=== PATIENT | female | born 1975 | race African-American/Black ===

== ENCOUNTER 2018-02-20 13:08 | Emergency (ER) | payer SELFPAY ==
[~2018-02-20] VITALS: Ht 165.1 cm; Wt 90.0 kg
[2018-02-20 13:15] VITALS: BP 151/78; PULSE 94; RESP 20; TEMP 98; O2SAT 100
[2018-02-20] MEDS ORDERED: SODIUM CHLOR 0.9% 1000 ML INJ 1,000 ML IV ONE (13:29)
[2018-02-20] MEDS ORDERED: SODIUM CHLORIDE 0.9% FLUSH 10 ML FLUSH IVF PRN (13:30)
[2018-02-20] MEDS ORDERED: PROCHLORPERAZINE INJ 10 MG/2 ML VIAL IVP ONE (13:30)
[2018-02-20] MEDS ORDERED: diphenhydrAMINE HCL 50 MG/ML VIAL IVP ONE (13:30)
[2018-02-20] MEDS ORDERED: MORPHINE SULFATE 2 MG/ML INJ IV PUSH ONE (13:30)
--- NOTE | 2018-02-20 13:37 | PD ---
HPI Chief Complaint: Headache Time Seen by Provider: 13:23 Travel History International Travel<30 days: No Contact w/Intl Traveler<30days: No History of Present Illness HPI 42-year-old female from [place] visiting locally, presents emergency department with worsening central headache, over the past 3 days. Patient states she normally does not have headaches. Patient states no significant upper respiratory symptoms. She states her headache is sometimes 10 /10 currently about an 8 out of 10. It is not worse with bending forward. She has no sinus congestion, cough, sore throat, or postnasal drip. She states no history of headaches in the past. She states this is the worst headache of her life. She denies vomiting but has had some nausea. No diarrhea noted. No fever or chills. Patient denies significant anxiety or stressors lately. No history of injury. Patient has no known drug allergies. PFSH Past Medical History ?: Not LMP: 02/03/18 Social History Alcohol Use: Yes Tobacco Use: No Substance Use: No Allergies-Medications (Allergen,Severity, Reaction): Coded Allergies: No Known Allergies (Unverified , 02/20/18) Review of Systems Except as stated in HPI: all other systems reviewed are Neg General / Constitutional: No: Fever Eyes: Positive: Photophobia, No: Diploplia, Blurred Vision, Drainage, Redness, Foreign Body Sensation, Pain, Tearing, Blind Spots, Visual changes, Blindness HENT: Positive: Headaches, Lightheadedness, No: Vertigo, Sore Throat, Rhinitis , Congestion, Nosebleed, Neck Stiffness, Neck Pain, Masses, Dental Difficulties , Earache Cardiovascular: No: Chest Pain or Discomfort Respiratory: No: Shortness of Breath Gastrointestinal: No: Abdominal Pain Genitourinary: No: Dysuria Musculoskeletal: No: Pain Skin: No Rash Neurologic: No: Weakness Psychiatric: No: Depression Endocrine: No: Polydipsia Hematologic/Lymphatic: No: Easy Bruising Physical Exam Narrative GENERAL: Patient appears in moderate distress. SKIN: Warm and dry. Normal color. Normal turgor. No rash. HEAD: Atraumatic. Normocephalic. No increased tenderness with palpation or percussion. EYES: Pupils equal and round. No scleral icterus. No injection or drainage. No nystagmus. ENT: No nasal bleeding or discharge. Mucous membranes pink and moist. Pharynx is clear. Airways patent. NECK: Trachea midline. Neck is supple without tenderness per CARDIOVASCULAR: Regular rate and rhythm. RESPIRATORY: No accessory muscle use. Clear to auscultation. Breath sounds equal bilaterally. GASTROINTESTINAL: Abdomen soft, non-tender, nondistended. Hepatic and splenic margins not palpable. MUSCULOSKELETAL: Extremities without clubbing, cyanosis, or edema. No obvious deformities. NEUROLOGICAL: Awake and alert. No obvious cranial nerve deficits. Motor grossly within normal limits. Five out of 5 muscle strength in the arms and legs. Normal speech. PSYCHIATRIC: Appropriate mood and affect; insight and judgment normal. Data Data Last Documented VS Vital Signs Date Time Temp Pulse Resp B/P (MAP) Pulse Ox O2 Delivery O2 Flow Rate FiO2 02/20/18 15:03 91 18 161/85 (110) 99 Room Air 02/20/18 13:15 98.0 Orders Orders Complete Blood Count With Diff (02/20/18 13:29) Comprehensive Metabolic Panel (02/20/18 13:29) Prothrombin Time / Inr (Pt) (02/20/18 13:29) Act Partial Throm Time (Ptt) (02/20/18 13:29) Ct Brain W/O Iv Contrast(Rout) (02/20/18 13:29) Ecg Monitoring (02/20/18 13:29) Iv Access Insert/Monitor (02/20/18 13:29) Oximetry (02/20/18 13:29) Sodium Chloride 0.9% Flush (Ns Flush) (02/20/18 13:30) Prochlorperazine Inj (Compazine Inj) (02/20/18 13:30) Diphenhydramine Inj (Benadryl Inj) (02/20/18 13:30) Sodium Chlor 0.9% 1000 Ml Inj (Ns 1000 M (02/20/18 13:29) Morphine Inj (Morphine Inj) (02/20/18 13:30) Lidocai-Epi 1%-1:100,000 Inj (Xylocaine- (02/20/18 14:13) Diphenhydramine Inj (Benadryl Inj) (02/20/18 14:45) Ketorolac Inj (Toradol Inj) (02/20/18 14:45) Labs Laboratory Tests Test 02/20/18 13:45 White Blood Count 4.5 TH/MM3 Red Blood Count 5.02 MIL/MM3 Hemoglobin 12.0 GM/DL Hematocrit 37.4 % Mean Corpuscular Volume 74.6 FL Mean Corpuscular Hemoglobin 24.0 PG Mean Corpuscular Hemoglobin Concent 32.1 % Red Cell Distribution Width 14.5 % Platelet Count 265 TH/MM3 Mean Platelet Volume 9.3 FL Neutrophils (%) (Auto) 43.0 % Lymphocytes (%) (Auto) 42.8 % Monocytes (%) (Auto) 12.1 % Eosinophils (%) (Auto) 1.6 % Basophils (%) (Auto) 0.5 % Neutrophils # (Auto) 1.9 TH/MM3 Lymphocytes # (Auto) 1.9 TH/MM3 Monocytes # (Auto) 0.5 TH/MM3 Eosinophils # (Auto) 0.1 TH/MM3 Basophils # (Auto) 0.0 TH/MM3 CBC Comment DIFF FINAL Differential Comment Prothrombin Time 10.6 SEC Prothromb Time International Ratio 1.0 RATIO Activated Partial Thromboplast Time 24.3 SEC Blood Urea Nitrogen 13 MG/DL Creatinine 0.87 MG/DL Random Glucose 93 MG/DL Total Protein 7.5 GM/DL Albumin 3.7 GM/DL Calcium Level 9.0 MG/DL Alkaline Phosphatase 37 U/L Aspartate Amino Transf (AST/SGOT) 22 U/L Alanine Aminotransferase (ALT/SGPT) 19 U/L Total Bilirubin 0.4 MG/DL Sodium Level 137 MEQ/L Potassium Level 4.1 MEQ/L Chloride Level 105 MEQ/L Carbon Dioxide Level 26.2 MEQ/L Anion Gap 6 MEQ/L Estimat Glomerular Filtration Rate 86 ML/MIN [facility] Medical Decision Making Medical Screen Exam Complete: Yes Emergency Medical Condition: Yes Differential Diagnosis Headache. Intracranial bleed. Migraine. Narrative Course Patient appears medically stable at time of exam. Vital signs are stable. Labs ordered including CBC, CMP, and coagulation studies. IV access is obtained. Patient is given 25 mg diphenhydramine IV, 2 mg morphine IV, 10 mg Compazine IV , and 1000 mL of normal saline bolus. CT of the brain without IV contrast is ordered. CT shows no acute process per radiologist Patient reportedly started to have extrapyramidal effects secondary to the Compazine injection. Patient is given an additional 50 mg diphenhydramine IV, and 30 mg Toradol IV. Labs are unremarkable. Patient is reassessed and feels somewhat improved. Patient be discharged home with diagnosis of headache. Patient is given ibuprofen 600 mg 4 times daily #40. Patient also given tramadol 50 mg 1 every 6 hours as needed headache #20. Patient is to follow-up if symptoms do not improve or worsen. Diagnosis Primary Impression: Headache Qualified Codes: G44.52 - New daily persistent headache (ndph) Patient Instructions: Acute Headache (ED), General Instructions Additional Instructions: CT shows no acute process per radiologist Patient reportedly started to have extrapyramidal effects secondary to the Compazine injection. Patient is given an additional 50 mg diphenhydramine IV, and 30 mg Toradol IV. Labs are unremarkable. Patient is reassessed and feels somewhat improved. Patient be discharged home with diagnosis of headache. Patient is given ibuprofen 600 mg 4 times daily #40. Patient also given tramadol 50 mg 1 every 6 hours as needed headache #20. Patient is to follow-up if symptoms do not improve or worsen. Med/Other Pt SpecificInfo: Prescription(s) given Disposition: DISCHARGE HOME Condition: Stable Drew Wilcox Feb 20, 2018 13:37
--- NOTE | 2018-02-20 14:09 | RADRPT ---
EXAM DATE/TIME: 02/20/2018 14:02 [facility] COMPARISON: No previous studies available for comparison. INDICATIONS : Headache and dizziness. RADIATION DOSE: 36.05 CTDIvol (mGy) MEDICAL HISTORY : None SURGICAL HISTORY : None. ENCOUNTER: Initial ACUITY: 1 day PAIN SCALE: 4/10 LOCATION: Bilateral cranial TECHNIQUE: Multiple contiguous axial images were obtained of the head. Using automated exposure control and adj ustment of the mA and/or kV according to patient size, radiation dose was kept as low as reasonably a chievable to obtain optimal diagnostic quality images. DICOM format image data is available electro nically for review and comparison. FINDINGS: CEREBRUM: The ventricles are normal for age. No evidence of midline shift, mass lesion, hemorrhage or acute in farction. No extra-axial fluid collections are seen. POSTERIOR FOSSA: The cerebellum and brainstem are intact. The 4th ventricle is midline. The cerebellopontine angle i s unremarkable. EXTRACRANIAL: The visualized portion of the orbits is intact. SKULL: The calvaria is intact. No evidence of skull fracture. CONCLUSION: No acute intracranial findings. Dirk Sun MD on February 20, 2018 at 14:06 Board Certified Radiologist. This report was verified electronically.
[2018-02-20] MEDS ORDERED: LIDOCAINE 1%/EPINEPHrine 1:100,000 SOLN 30 ML VIAL ONE (14:13)
[2018-02-20 14:14] LABS: AUTOMATED NEUTROPHIL # 1.9 TH/MM3 (1.8-7.7); BASOPHIL % 0.5 % (0.0-2.0); EOSINOPHIL # 0.1 TH/MM3 (0-0.4); EOSINOPHIL % 1.6 % (0.0-4.0); HEMATOCRIT 37.4 % (35.0-46.0); LYMPH % 42.8 % (9.0-44.0); LYMPHOCYTE # 1.9 TH/MM3 (1.0-4.8); MEAN CELL VOLUME 74.6 FL (80.0-100.0); MEAN CORPUSCULAR HGB CONC 32.1 % (32.0-36.0); MEAN PLATELET VOLUME 9.3 FL (7.0-11.0); MONO % 12.1 % (0.0-8.0); MONOCYTE # 0.5 TH/MM3 (0-0.9); PLATELET COUNT 265 TH/MM3 (150-450); RED BLOOD COUNT 5.02 MIL/MM3 (4.00-5.30); RED CELL DISTRIBUTION WIDTH 14.5 % (11.6-17.2); WHITE BLOOD COUNT 4.5 TH/MM3 (4.0-11.0)
[2018-02-20 14:19] LABS: PROTHROMBIN TIME - PATIENT 10.6 SEC (9.8-11.6)
[2018-02-20 14:37] LABS: ALBUMIN 3.7 GM/DL (3.4-5.0); AST (GOT) 22 U/L (15-37); BICARBONATE 26.2 MEQ/L (21.0-32.0); BLOOD UREA NITROGEN 13 MG/DL (7-18); CHLORIDE 105 MEQ/L (98-107); CREATININE 0.87 MG/DL (0.50-1.00); GLOMERULAR FILTRATION RATE 86 ML/MIN (>89); GLUCOSE,RANDOM 93 MG/DL (74-106); SODIUM (NA) 137 MEQ/L (136-145)
[2018-02-20 14:42] LABS: ALKALINE PHOSPHATASE 37 U/L (45-117); ALT (GPT) 19 U/L (10-53); TOTAL BILIRUBIN ADULT 0.4 MG/DL (0.2-1.0); TOTAL PROTEIN 7.5 GM/DL (6.4-8.2)
[2018-02-20] MEDS ORDERED: KETOROLAC TROMETHAMINE 30 MG/ML (IVP) VIAL IV PUSH ONE (14:45)
[2018-02-20] MEDS ORDERED: diphenhydrAMINE HCL 50 MG/ML VIAL IV PUSH ONE (14:45)
[2018-02-20 15:03] VITALS: BP 161/85; PULSE 91; RESP 18; O2SAT 99
[2018-02-20 15:13] VITALS: RESP 18
[2018-02-20] MEDS ORDERED: IBUP-232 PO (15:26)
[2018-02-20] MEDS ORDERED: TRAM50TA PO (15:26)
[2018-02-20 15:57] VITALS: BP 139/78
== END 2018-02-20 16:01 | disposition home or self-care (01) ==
LOC: NEPD 13:08
DX: G44.52 New daily persistent headache (NDPH) (principal)
CPT/HCPCS: 70450; 80053; 85025; 85610; 85730; 96361; 96374; 96375; 99284; J0780; J1200; J2270; J7030